=== PATIENT | male | born 1965 | race Caucasian/White ===

== ENCOUNTER 2024-12-26 08:37 | Day surgery (SDC) | payer OTHER ==
[~2024-12-26] VITALS: Ht 172.7 cm; Wt 84.1 kg
[~2024-12-26 08:37] MED LIST: IBLOOD GLUCOSE TEST STRIP 1 EA TEST VI PRN; LACTATED RINGER'S 1,000 ML IV SCH; LIDOCAINE HCL 1% 5 ML SDV INJ ONE; MELOXICAM15 MG PO; MIDAZOLAM HCL 5 MG/5 ML VIAL IV PRN; VITAMIN B12500 MCG PO; VITAMIN D250 MCG PO; fentaNYL citrate 100 MCG/2 ML VIAL IV PRN
[2024-12-26 08:54] VITALS: BP 145/77
[2024-12-26] MEDS ORDERED: MIDAZOLAM HCL 5 MG/5 ML VIAL ONE (10:21)
[2024-12-26] MEDS ORDERED: fentaNYL citrate 100 MCG/2 ML VIAL ONE (10:21)
--- NOTE | 2024-12-26 11:16 | NUR ---
12/26/24 1116 Sheets,Yaquelin 1110 PT ARRIVED TO PACU ON 2L VIA NC, PT ASLEEP AND SMALL AMOUNT OF SNORING NOTED. 1111 PT WAKES EASILY AND DENIES CONCERNS AND IS REORIENTED TO PACU. PT EASIYL FALLS BACK TO SLEEP.
[2024-12-26 11:54] VITALS: BP 115/76
--- NOTE | 2024-12-26 12:30 | OR ---
[facility] [address] [place], [place] [address] Signed DATE OF OPERATION: 12/26/2024 SURGEON: Mercy Leal MD PREOPERATIVE DIAGNOSIS: Colon screening. POSTOPERATIVE DIAGNOSIS: Sigmoid diverticulosis. PROCEDURE: Total colonoscopy to cecum. ANESTHESIA: Intravenous sedation, fentanyl 100 mcg, Versed 6 mg. INDICATION: This 59-year-old white man is patient of Dr. Jd Jo and underwent colonoscopy by Dr. Jo greater than five years ago. He was recommended to have surveillance colonoscopy. He currently has no symptoms of bleeding, diarrhea, or constipation but does have family history of colon cancer in his father. He understands the risk of colonoscopy including, but not limited to bleeding, infection, and perforation and wished to proceed. FINDINGS: The prep was excellent. Complete colonoscopy was undertaken of the cecum with full intubation of the cecum. He had no evidence of colitis or polyps, but did have diverticula, large-mouthed in the sigmoid. DESCRIPTION OF PROCEDURE: The patient was brought to the endoscopy suite and placed in lateral decubitus position, given intravenous sedation to the point of slurred speech and nystagmus. Digital rectal examination was normal. Olympus video colonoscope was passed in the rectum and manipulated throughout the colon ultimately intubating the cecum itself. The ileocecal valve and appendiceal orifice were normal. The scope was withdrawn. From that point, an examination throughout showed no sign of abnormality until the sigmoid where diverticula were noted. There were not very many and there were wide-mouthed. Further withdrawal showed no other abnormality. Retroflexed view was normal. Scope was removed. The patient was taken to recovery room in good condition. Electronically Signed By: MERCY LEAL MD 12/26/24 1230 PATIENT NAME: KRISTEL BARCENAS OPERATIVE REPORT DATE OF : 61 REPORT #: [id number] PHYSICIAN: MERCY LEAL MD PCP: JD JO MD REPORT IS CONFIDENTIAL AND NOT TO BE RELEASED WITHOUT AUTHORIZATION [facility] [address] [facility] [place], [place] [address] Signed CONCLUDING DIAGNOSIS: Diverticulosis. PLAN: Would recommend repeat colonoscopy in 5 years based on current recommendations for family history of colon cancer in his father. .... sooner if clinically necessary. He will return to the ongoing care of Dr. Jo. He is additionally recommended to have a high-fiber diet. MD KIMBERLEY Colmenares/SIMONEL /[id number] cc: Jd Jo MD Copies: JD JO MD ~ Electronically Signed By: MERCY LEAL MD 12/26/24 1230 PATIENT NAME: KRISTEL BARCENAS OPERATIVE REPORT DATE OF : 61 REPORT #: [id number] PHYSICIAN: MERCY LEAL MD PCP: JD JO MD REPORT IS CONFIDENTIAL AND NOT TO BE RELEASED WITHOUT AUTHORIZATION
== END 2024-12-26 11:58 | disposition home or self-care (01) ==
LOC: DS 08:37 → OPS 08:37 → DS 09:00 → OPS 10:10
PROVIDERS: ATTEND Surgery
PROC: 0DJD8ZZ Inspection of Lower Intestinal Tract, Via Natural or Artificial Opening Endoscopic (ICD-10-PCS; principal; 2024-12-26 10:10)
DX: Z12.11 Encounter for screening for malignant neoplasm of colon (principal); K57.30 Diverticulosis of large intestine without perforation or abscess without bleeding; M17.0 Bilateral primary osteoarthritis of knee; Z80.0 Family history of malignant neoplasm of digestive organs; Z98.890 Other specified postprocedural states; Z79.899 Other long term (current) drug therapy
CPT/HCPCS: 99153; G0500; J2250; J3010; J7121